=== PATIENT | male | born 2000 | race Caucasian/White ===

== ENCOUNTER 2020-12-07 11:45 | Outpatient (RCR) | payer OTHER, SELFPAY ==
[2020-11-22 11:58] VITALS: BMI 27.1
--- NOTE | 2020-11-22 12:48 | PC.ADMIT ---
Patient referred to the [facility] by his PCP d/t increase in depression and severe anxiety with panic attacks interfering with his ability to function. 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 Patient is currently living with his parents and is not working. Sleeping pattern is off, unable to focus. Reports chronic fatigue and nausea related to anxiety. Patient presents with depressed mood, blunted affect. Denied SI. Reports severe anxiety. Wants to be able to function without having debilitating anxiety. Patient gave verbal permission to email him a copy of his safety plan. Medicaitons reconciled with patient and patient'd pharmacy. Patient reports he does not always take the medication consistently as he will forget to take them once of twice a week. Patient reports he has been taking them consistently for the last several weeks.
--- NOTE | 2020-11-22 16:05 | HO.PHPPROGNO ---
Subjective Subjective Date of Service: 11/22/20 Reason For Visit: Generalized Anxiety, Panic Attacks Diagnostics Vital Signs (24Hr): Body Mass Index 27.1 Assessment & Plan Certification I certify that partial hospital treatment is medically necessary due to the symptoms and problems resulting from the patient's mental illness and the failure to treat the patient at the partial hospital level of care would likely result in the patient requiring inpatient psychiatric care which could not be prevented at a less intensive level of care. Greater than 50% of the session was spent on counseling and/or coordination of care Discharge Plan Discharge Attending provider: Santhosh White Medications: No Action clonazepam [Klonopin] 1 mg Tablet 1 mg PO BID PRN (Reason: Anxiety) RF: 0 citalopram [Celexa] 20 mg Tablet 20 mg PO DAILY RF: 0 aripiprazole [Abilify] 2 mg Tablet 2 mg PO BEDTIME RF: 0
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
--- NOTE | 2020-11-28 13:30 | PM.EVENT ---
Event Note Date of Service: 11/28/20 Event Note: NO SHOW FOR PHP APPOINTMENT
--- NOTE | 2020-11-28 14:54 | PC.NURSE ---
After speaking about aftercare with pt, at his request, I called [facility] in [place] and put in a referral for pt to receive individual therapy and medication management. Staff there said they would email pt a registration form, and that they would need him to supply a copy of his insurance card and picture ID. They said they will call him to set up the appointment. I then called and spoke to pt again, and he seemed pleased with the referral and will expect and email and a call from [facility] in [place]. I gave him their number as well ([phone]).
--- NOTE | 2020-11-29 17:52 | HO.PHPPROGNO ---
Subjective Subjective Date of Service: 11/29/20 Reason For Visit: Generalized Anxiety, Panic Attacks Interim History: Devyn reports he has had physical manisfestations of his anxiety this past week. He reports feeling spacey, drifting off at times. He believes this may have been because he had been physically during the past week. He had not yet started taking the increased dose of celexa. He reports taking the abilify at bedtime. Reports using one klonopin 2 days ago, but it made him tired. Medication Compliance: Intermittent Side effects from medications: Yes (felt tired from the klonopin 1mg. ) Attending Groups: Yes Review of Systems Review of Systems Yes all other systems are reviewed and are negative Mental Status Exam Mental Status Exam Patient Appearance: Well Grooomed and Appropriate Patient Orientation: Person, Place, Time and Situation Level of Consciousness: Awake and Appropriate Patient Behavior: Appropriate and Cooperative Mood Description: Calm and Appropriate Affect Description: Appropriate, Depressed and Anxious Patient Cognition Impaired: No Ability to Follow Directions: Excellent Speech Pattern: Clear Memory Description: Intact Hallucinations: None Delusions: Not Present Thought Process: Intact Thought Content: positive for Intact Depressive Symptoms: Increased Anxiety and Loss of Int. in Activity Judgement: Fair Diagnostics Vital Signs (24Hr): Body Mass Index 27.1 Assessment & Plan Assessment & Plan (1) CELESTE (generalized anxiety disorder): Status: Acute Code(s): F41.1 - Generalized anxiety disorder Assessment and Plan: Devyn reports he has had physical manisfestations of his anxiety this past week. He reports feeling spacey, drifting off at times. He believes this may have been because he had been physically during the past week. He had not yet started taking the increased dose of celexa. He reports taking the abilify at bedtime. Reports using one klonopin 2 days ago, but it made him tired. PLAN: Patient agrees to start increased celexa dose (from 20mg to 30mg). Agrees to continue with abilfy, perhaps consider increase next week. Agrees to utilize the prn klonopin. Advised to try taking 1/2 the pill for a dose of 0.5mg if he feels too sedated with the 1mg dose. Plan to follow-up next week, sooner if needed. Does not need refills ordered at this time. Certification I certify that partial hospital treatment is medically necessary due to the symptoms and problems resulting from the patient's mental illness and the failure to treat the patient at the partial hospital level of care would likely result in the patient requiring inpatient psychiatric care which could not be prevented at a less intensive level of care. Greater than 50% of the session was spent on counseling and/or coordination of care Discharge Plan Discharge Attending provider: Santhosh White Medications: No Action clonazepam [Klonopin] 1 mg Tablet 1 mg PO BID PRN (Reason: Anxiety) RF: 0 citalopram [Celexa] 20 mg Tablet 20 mg PO DAILY RF: 0 aripiprazole [Abilify] 2 mg Tablet 2 mg PO BEDTIME RF: 0 Telehealth Telehealth Location of provider rendering services: practice address Location of patient: address on file Patient Identification confirmed using: Name, : Yes Telehealth method: video Patient verbally consented to treatment: Yes Patient verbally consented to billing insurance company: Yes Patient informed of any privacy concerns related to visit: Yes Time spent with patient (mins): 15
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
--- NOTE | 2020-12-07 12:13 | PC.NURSE ---
Patient discharging from the program today. Reviewed patient's medications with patient. Patient reports taking medications as prescribed. Medication education provided. Patient reports his PCP will prescribe his medications as his PCP has been doing prior to patient attending the program. Patient reports he is safe, no safety issues.
--- NOTE | 2020-12-07 14:26 | PC.NURSE ---
I spoke to pt at 8:30 am. I asked him about saying in group that he has found a psychiatrist, and he said he didn't really find one- that it was never finalized . He said he has not yet filled out the registration forms for the referral to [facility]. He then said he is in need of a psychiatrist to work on medication management. I reminded him that this is part of why he was being referred to [facility]. I then offered to make him an appointment at [facility], since they don't require a client to fill out registration paperwork to get an appt, and since they give medication appointments up front rather than having the client see the therapist 3 times first. Pt agreed tot his plan. However, when I called [facility], I spoke to Pinky who said that the upper management has decided that they will no longer give med management appointments upon referral, and that the pt has to see the therapist 3 times first. I called and spoke to pt about this, and he said he will still accept the referral to [facility]. He has a telehealth Intake appointment with Dotty Ferraro at [facility] on 12/14/20 at 12pm. After seeing the therapist 3 times, they will give an appointment to see a med provider.
--- NOTE | 2020-12-07 15:56 | HO.PHPPROGNO ---
Subjective Subjective Date of Service: 12/07/20 Reason For Visit: Generalized Anxiety, Panic Attacks Subjective Notes: Epps Warning Medical Problems Affecting Mental Status: No Interim History: Today is Devyn's last day at partial. He reports that overall he feels he has gained some valuable coping skills from participation. He reports that he did start taking the higher dose of Celexa ?probably 5 or 6 days ago ?. Patient continues to focus on some somatic symptoms related to anxiety. Techniques for managing this were discussed. No safety concerns. Medication Compliance: Yes Side effects from medications: No Attending Groups: Yes Review of Systems Comments: Overall patient denies any type of issues physically. Comments: No visual loss, no blurred vision, no double vision, or yellow sclerae. Reports Normal hearing present Cardiovascular: Reports palpitations (Patient reports that his primary care provider would like to send him to a ) Respiratory: Reports no additional respiratory complaints Gastrointestinal: Reports no additional gastrointestinal complaints Reports Normal hearing present Endocrine: Reports palpitations (Patient reports that his primary care provider would like to send him to a ) Mental Status Exam Mental Status Exam Narrative: Well-nourished, well-developed male, appears stated age. No overt distress. Patient Appearance: Well Grooomed and Appropriate Patient Orientation: Person, Place, Time and Situation Level of Consciousness: Awake and Appropriate Patient Behavior: Appropriate and Cooperative Mood Description: Anxious Affect Description: Appropriate and Anxious Patient Cognition Impaired: No Ability to Follow Directions: Excellent Speech Pattern: Clear Memory Description: Intact Hallucinations: None Delusions: Not Present Thought Process: Intact Thought Content: positive for Intact Depressive Symptoms: Increased Anxiety Judgement: Good Judgement and Insight: Judgment and insight overall intact. Diagnostics Vital Signs (24Hr): Body Mass Index 27.1 Assessment & Plan Assessment & Plan (1) CELESTE (generalized anxiety disorder): Status: Acute Code(s): F41.1 - Generalized anxiety disorder Assessment and Plan: Patient continues to experience in display symptoms of anxiety. Plan going forward continue citalopram 30 mg daily, klonopin, and abilify, and follow up with outpatient providers. Reason for contiued partial hosp. stay Substantial Risk for: stable for discharge Certification I certify that partial hospital treatment is medically necessary due to the symptoms and problems resulting from the patient's mental illness and the failure to treat the patient at the partial hospital level of care would likely result in the patient requiring inpatient psychiatric care which could not be prevented at a less intensive level of care. Greater than 50% of the session was spent on counseling and/or coordination of care Discharge Plan Discharge Attending provider: Santhosh White Additional Instructions: Telehealth Intake appointment with Dotty Ferraro at [facility] on 12/14/20 at 12pm. After seeing the therapist 3 times, they will give an appointment to see a med provider. Medications: New citalopram 20 mg tablet 30 mg PO DAILY 7 Days Qty: 11 RF: 0 Discontinued citalopram [Celexa] 20 mg Tablet 20 mg PO DAILY RF: 0 No Action clonazepam [Klonopin] 1 mg Tablet 1 mg PO BID PRN (Reason: Anxiety) RF: 0 aripiprazole [Abilify] 2 mg Tablet 2 mg PO BEDTIME RF: 0 Stand Alone Forms: Patient Portal Discharge page Telehealth Telehealth Location of provider rendering services: practice address Location of patient: address on file Patient Identification confirmed using: Name, : Yes Telehealth method: video Patient verbally consented to treatment: Yes Patient verbally consented to billing insurance company: Yes Patient informed of any privacy concerns related to visit: Yes Time spent with patient (mins): 15
== END 2020-12-10 07:38 | disposition home or self-care (01) ==
LOC: HO.PHPA 11:45
PROVIDERS: Visit Provider Psychiatry & Neurology Psychiatry
DX: F41.1 Generalized anxiety disorder (principal); F41.0 Panic disorder [episodic paroxysmal anxiety]; Z79.899 Other long term (current) drug therapy
CPT/HCPCS: 90791; 90853

== ENCOUNTER 2021-12-27 23:28 | Emergency (ER) | payer OTHER, SELFPAY ==
[2021-12-28 00:56] VITALS: BP 141/78; PULSE 89; RESP 16; TEMP 36.6; O2SAT 99; BMI 22.2
[2021-12-28 01:23] LABS: COVID-19 Test Positive (Negative)
--- NOTE | 2021-12-28 02:17 | ED_ITS ---
HPI - Anxiety General Chief Complaint: Anxiety Stated Complaint: Crisis Time Seen by Provider: 12/28/21 02:07 Source: patient Mode of arrival: ambulatory Limitations: no limitations History of Present Illness HPI narrative: Patient comes to the emergency room complaining of anxiety. Patient takes 2 medications for anxiety, states he wean his self of 1 of his medications. Patient states that he has a therapist or not a psychiatrist and he is looking for a psychiatrist. Patient denies suicidal or homicidal ideation. Patient states that he has had symptoms for about 5 months, gradually getting worse. Today he could not take it any longer and told his family that he needs to be seen by behavioral health network. Also, patient complaining of runny nose, cough and itchy throat . Symptoms have been present for 3 days. Related Data Home Medications Medication Instructions Recorded Confirmed aripiprazole 2 mg tablet (Abilify) 2 mg PO BEDTIME 11/22/20 11/22/20 clonazepam 1 mg tablet (Klonopin) 1 mg PO BID PRN Anxiety 11/22/20 11/22/20 Previous Rx's Medication Instructions Recorded citalopram 20 mg tablet 30 mg PO DAILY 7 days #11 tabs 12/07/20 Allergies Allergy/AdvReac Type Severity Reaction Status Date / Time amoxicillin Allergy Rash Verified 11/22/20 12:54 Review of Systems Review of Systems: Constitutional : No Weight loss, No Fever, No Chills, No Night Sweats, No Fatigue, No Malaise ENT/Mouth : No Hearing loss, No Ear Pain, complaining of mild Nasal Congestion, No Sinus Pain, No Hoarseness, No sore throat but has itchy throat, No Rhinorrhea, No Swallowing Difficulty Eyes: No Eye Pain, No Swelling, No Redness, No Foreign Body, No Discharge, No Vision Changes Cardiovascular : No Chest Pain, No SOB, No Dyspnea on Exertion, No Orthopnea, No Edema, No Palpitations Respiratory : No Cough, No Sputum, No Wheezing, No Smoke Exposure, No Dyspnea Gastrointestinal : No Nausea, No Vomiting, No Diarrhea, No Constipation, No abdominal Pain, No Hematochezia, No Melena Genitourinary : no irregular bleeding, No Dysuria, No Urinary Frequency, No Hematuria, No Urinary Incontinence, No Urgency, No Flank Pain, No Urinary Flow Changes, No Hesitancy Musculoskeletal : No joint pain, No Myalgias, No Joint Swelling Skin : No Skin Lesions, No rash Neuro : No Weakness, No Numbness, No Paresthesias, No Loss of Consciousness, No Dizziness, No Headache Psych : Complaining of worsening anxiety for several months, No Depression, No SI/HI/AH/VH, No Social Issues, Heme/Lymph: No Bruising, No Bleeding,No Lymphadenopathy Endocrine : No Polyuria, No Polydipsia, No Temperature Intolerance [facility] Past Medical History Medical History Constipation CELESTE (generalized anxiety disorder) Hyperbilirubinemia Vitamin D deficiency Social History Social History Household Members: Family Patient Tobacco Use Status: Never used Tobacco Physical Exam Vital Signs: Vital Signs: Last Vital Signs Temp 97.8 F 12/28/21 00:56 Pulse 89 12/28/21 00:56 Resp 16 12/28/21 00:56 BP 141/78 H 12/28/21 00:56 Pulse Ox 99 12/28/21 00:56 O2 Del Method 12/28/21 00:56 BMI result Body Mass Index 22.2 Const: Other: Appearance: Alert. Oriented X3. No acute distress. Eyes: Pupils equal, round and reactive to light. ENT: Pharynx normal. Neck: Normal inspection. Neck supple. No lymph nodes noted. No crepitus CVS: Normal heart rate and rhythm. Pulses normal. Normal S1 and S2 Respiratory: No respiratory distress. Breath sounds normal. No Wheezing. No rales Abdomen: Soft and nontender. No rigidity. No distention. Skin: Skin warm and dry. Normal skin color. Normal skin turgor. Extremities: No lower extremity edema. No Lacerations. No Rash Neuro: Oriented X 3. No motor deficit. No sensory deficit. Moving all extremities. No slurred speech. CN 2 through 12 grossly intact Psych: calm, cooperative, normal affect Course Course Course Narrative: Patient tested positive for COVID-19. Patient has no respiratory distress, lungs are clear, vitals normal. Behavioral health network consult pending Physician of serrzabrina started at 02:15 [facility] - Anxiety Lab Data Labs: Lab Results 12/28/21 Range/Units 01:06 COVID-19 (KATHLEEN) Positive A (Negative) COVID-19 Clin Com See Note Discharge Plan Discharge Clinical Impression: CELESTE (generalized anxiety disorder), COVID-19 Patient Disposition: Still a Patient Prescriptions: No Action clonazepam [Klonopin] 1 mg Tablet 1 mg PO BID PRN (Reason: Anxiety) aripiprazole [Abilify] 2 mg Tablet 2 mg PO BEDTIME citalopram 20 mg tablet 30 mg PO DAILY 7 Days Qty: 11 0RF
[2021-12-28 05:43] LABS: Appearance Urine CLEAR; Color Urine YELLOW; Glucose Urine UA NEG (NEG); Leukocyte Esterase Urine NEG (NEG); Nitrite Urine NEG (NEG); PH 6.5 (5.0-8.0); Specific Gravity - Urine 1.015 (1.005-1.025); UACC Culture Trigger NO; Urine Blood TRACE (NEG); Urine Ketones NEG (NEG); Urine Protein NEG (NEG-TRACE)
[2021-12-28 05:57] LABS: Bacteria Urine TRACE /LPF; Mucus Urine TRACE /LPF; RBC Urine 0 /HPF (0); WBC Urine 0 /HPF (0-4)
[2021-12-28 05:58] LABS: Amphetamine Screen Urine Not Detected (Not Detect); Barbiturates, Urine Not Detected (Not Detect); Benzodiazepines Screen Urine Not Detected (Not Detect); Cannabinoid Screen Urine Not Detected (Not Detect); Cocaine Screen Urine Not Detected (Not Detect); Fentanyl, urine Not Detected (Not Detect); Opiate Screen Urine Not Detected (Not Detect); Phencyclidine Screen Urine Not Detected (Not Detect)
--- NOTE | 2021-12-28 06:31 | PC.NURSE ---
[facility] referral sent per protocol.
[2021-12-28 07:14] LABS: Glucose, Whole Blood 88 mg/dL (60-115)
[2021-12-28 12:54] VITALS: BP 140/79; PULSE 98; RESP 22; TEMP 36.6; O2SAT 97
== END 2021-12-28 17:44 | disposition home or self-care (01) ==
PROVIDERS: Emergency Provider Emergency Medicine; PCP Nurse Practitioner Adult Health
DX: U07.1 COVID-19 (principal); F41.1 Generalized anxiety disorder; Z79.899 Other long term (current) drug therapy
CPT/HCPCS: 80307; 81001; 82947; 87635; 99284